=== PATIENT | female | born 1945 | race Caucasian/White ===

== ENCOUNTER 2017-04-16 06:46 | Day surgery (SDC) | payer MEDICARE ==
[~2017-04-16 06:46] MED LIST: ASPIRIN EC81 M1 PO; BENADRYL50 MG PO; BIOTIN5 MG PO; BISOPROLOL-HCT1 EAC1 PO; COLACE100 MG PO; COZAAR100 MG PO; DIOVAN160 MG PO; ELIQUIS2.5 MG PO; FLUTICASONE PRO16 GM NS; GLUCOPHAGE1000 MG PO; GLUCOSAMINE MSM PO; LIPITOR10 MG PO; MS CONTIN15 MG PO; NAPROSYN500 MG PO; OYST-CAL-5001 TAB PO; PERCOCET 10/3251 TA1 PO; SENOKOT-S TABLE1 TAB PO; SUDAFED 30 MG T30 MG PO; TYLENOL W/CODEI1 TAB PO; [UNRECOGNIZED DRUG - OTHER]
[2017-04-16 07:29] LABS: HEMATOCRIT 44.9 % (36.0-48.0); HEMOGLOBIN 14.8 g/dL (12-16); MCH 30.8 pg (26.0-34.0); MCV 93.3 fL (80.0-100.0); MEAN PLATELET VOLUME 11.2 fL (7.4-10.4); RBC 4.81 10x6/uL (4.00-5.40); RDW 13.2 % (11.5-14.5); WBC 9.3 10x3/uL (4.8-10.8)
[2017-04-16 08:04] VITALS: BMI 33.5
--- NOTE | 2017-04-16 10:15 | NUR ---
PT POSITIONED WITH PILLOW BETWEEN ARMS, FOAM BETWEEN LEGS. DENTURES REMOVED AND PLACED IN A LABELED CUP. TRANSPORTED WITH PT TO PACU. NURSES NOTIFIED PER VIKAS LANDRY PAD X 2 PLACED ON LEFT THIGH AND ABDOMEN. L/N [id number],EXP 03-01-19 X2.
--- NOTE | 2017-04-16 12:23 | NUR ---
1155-RECD TO ROOM FROM PACU. ALERT. IV PATENT. RESP WITH EASE. CXR DONE. 1200-FULL LIQUID TRAY SERVED.
--- NOTE | 2017-04-16 13:22 | NUR ---
1315 DISCHARGE INSTRUCTIONS COMPLETE. PT HAS NO QUESTIONS OR CONCERNS AT THIS TIME. PRESCRIPTION FOR CIPRO AND FLAGYL GIVEN. PT ESCORTED OUT BY VOLUNTEER.
--- NOTE | 2017-04-18 10:04 | HP ---
PATIENT: SANDRA SCOTT MEDICAL RECORD: [id number] ACCOUNT: [id number] LOCATION:[facility] : 45 ADMISSION DATE: 04/16/17 HISTORY AND PHYSICAL EXAMINATION There is a history and physical on the chart. There been no change in the history and physical examination since I saw the patient in my office. She has multiple colon polyps, many of which had been tattooed. The risks, possible complications, and alternatives to the procedure were explained to the patient. She elects to proceed. The discussion specifically included, but was not limited to, bleeding requiring emergency reoperation, infection, intestinal injury as well as possible need for further procedures or an open procedure. We also discussed the possibility of post-polypectomy bleeding as well as post-polypectomy syndrome. TRANSINT:[id number] Voice Confirmation ID: [id number] DOCUMENT ID: [id number] CC: Claudia Dominguez APN [facility]. CALEB FLOOD MD at 1004 CC: CLAUDIA DOMINGUEZ APN and MICHELLE GARCIA DO [id number] DICTATION DATE: 04/16/17 1152 DIRECTOR AIRPORT: 04/16/17 1222 [facility] [place] 04/16/17 [id number] [place] [address]
--- NOTE | 2017-04-18 10:04 | OP ---
PATIENT NAME: SANDRA SCOTT MEDICAL RECORD: [id number] :45 LOCATION:D[facility] ADMISSION DATE: SURGEON: CALEB FLOOD MD DATE OF OPERATION: 04/16/2017 PREOPERATIVE DIAGNOSIS: History of multiple colon polyps, many of which have been tattooed. POSTOPERATIVE DIAGNOSIS: History of multiple colon polyps, many of which have been tattooed with total of 8 polyps removed. PROCEDURES: 1. Total colonoscopy to cecum. 2. Six polypectomies utilizing the argon plasma accounts receivable manager. 3. Hot biopsy forceps polypectomies times 2. 4. Placement of 3 endoscopic clips for hemostasis. SURGEON: Caleb Flood MD PERIOPERATIVE NURSE: None. BLOOD LOSS: Minimal. ANESTHESIA: General. COMPLICATIONS: None. The risks, possible complications, and alternatives to procedure were explained to the patient. She elects to proceed. OPERATIVE COURSE: The patient was conveyed to the operating room electively on 04/16/17. General anesthesia was induced by anesthesia staff. The patient was placed in the Hand position. A digital rectal examination was performed. A colonoscope was inserted through the anus. It was easily advanced to the cecum. Upon withdrawal, I irrigated and aspirated extensively. The pullback was greater than 30-minute pullback. I dragged the folds. The prep was adequate. Multiple tattoos were noted. Multiple polyps were noted. The polyps ranged in size from 1.2 cm to 3.8 cm. I biopsied the polyps and utilized the argon plasma accounts receivable manager on 6 of the polypoid bases utilizing the right colon setting in the force mode. Two other polyps which were a 1.2 cm polyp and a 1.4 cm polyp were removed in their entireties utilizing the hot biopsy forceps polypectomy technique. There was one ascending colon polyp that bled after being removed. This necessitated the placement of 3 endoscopic clips in a row. This resulted in complete hemostasis. A retroflexed view was obtained in the rectum. The endoscope was then unretroflexed and removed under direct vision. I will see the patient in my office in 2-3 weeks. I will plan for her next colonoscopy with argon plasma accounts receivable manager to take place in 1 year. TRANSINT:[id number] Voice Confirmation ID: [id number] DOCUMENT ID: [id number] OPERATIVE REPORT [id number] SANDRA SCOTT CC: Claudia Dominguez APN [facility]. CALEB FLOOD MD at 1004 CC: CLAUDIA DOMINGUEZ APN and MICHELLE GARCIA DO [id number] DICTATION DATE: 04/16/17 1156 DESIGN ENGINEERING INTERN: 04/16/17 1304 [facility] [place] 04/16/17 [facility] [address] [id number]
== END 2017-04-16 13:15 | disposition home or self-care (01) ==
LOC: D.OPS 06:46 → D.PAN 09:15 → D.OPS 10:30 → D.PAN 10:30 → D.OPS 13:15
PROVIDERS: Anesthesiology
DX: K63.5 Polyp of colon (principal); Z86.010 Personal history of colon polyps; Z01.812 Encounter for preprocedural laboratory examination

== ENCOUNTER → 2017-11-18 11:06 | Outpatient (CLI) | payer MEDICARE | END | disposition home or self-care (01) | LOC: D.MRI 11:06 | DX: M25.512 Pain in left shoulder (principal) ==

== ENCOUNTER → 2017-12-02 18:25 | Outpatient (CLI) | payer MEDICARE | END | disposition home or self-care (01) | LOC: D.MAMMO 09:00 | DX: Z12.31 Encounter for screening mammogram for malignant neoplasm of breast (principal) ==

== ENCOUNTER 2018-07-21 08:05 | Outpatient (CLI) | payer MEDICARE ==
[~2018-07-21] VITALS: Ht 175.3 cm; Wt 97.7 kg
[2018-07-21 08:38] LABS: HEMATOCRIT 42.1 % (36.0-48.0); HEMOGLOBIN 13.9 g/dL (12-16); MCH 30.3 pg (26.0-34.0); MCV 91.7 fL (80.0-100.0); MEAN PLATELET VOLUME 10.6 fL (7.4-10.4); RBC 4.59 10x6/uL (4.00-5.40); RDW 13.4 % (11.5-14.5); WBC 8.7 10x3/uL (4.8-10.8)
[2018-07-21 09:03] VITALS: BP 142/81; Ht 175.3 cm; Wt 97.7 kg
[2018-07-21] MEDS ORDERED: VICTOZA0.6 MG/0.1 SQ (09:13)
[2018-07-21] MEDS ORDERED: VOLTAREN100 GM TOPICAL (09:13)
--- NOTE | 2018-07-21 12:04 | NUR ---
1200-PT. AND SPOUSE INFORMED OF ONE TO ONE AND A HALF HOUR DELAY. PT. REQUESTED IV TO BE REMOVED AND TO LEAVE. INSTRUCTED PATIENT TO CALL OFFICE TO RESCHEDULE.
== END 2018-07-21 08:06 | disposition home or self-care (01) ==
LOC: D.OPS 08:05 → EDSTATUS 11:00 → D.OPS 11:00
PROVIDERS: Anesthesiology; ATTEND Surgery
DX: Z86.010 Personal history of colon polyps (principal); Z53.29 Procedure and treatment not carried out because of patient's decision for other reasons

== ENCOUNTER 2018-09-01 06:18 | Day surgery (SDC) | payer MEDICARE ==
[~2018-09-01] VITALS: Ht 175.3 cm; Wt 93.2 kg
[~2018-09-01 06:18] MED LIST changes: -GLUCOPHAGE1000 MG PO; +GLUCOPHAGE500 MG PO; +VICTOZA0.6 MG/0.1 SQ; +VOLTAREN100 GM TOPICAL
[2018-09-01 06:37] LABS: HEMATOCRIT 41.7 % (36.0-48.0); HEMOGLOBIN 13.7 g/dL (12-16); MCH 30.4 pg (26.0-34.0); MCHC 32.9 g/dL (31.0-37.0); MCV 92.7 fL (80.0-100.0); MEAN PLATELET VOLUME 10.7 fL (7.4-10.4); RBC 4.5 10x6/uL (4.00-5.40); RDW 13.5 % (11.5-14.5); WBC 7.4 10x3/uL (4.8-10.8)
[2018-09-01 06:59] LABS: ANION GAP 11.6 mmol/L (8-16); CALCIUM 9.6 mg/dL (8.5-10.1); CARBON DIOXIDE 30.5 mmol/L (21.0-32.0); CREATININE - SERUM 0.9 mg/dL (0.6-1.3); POTASSIUM - SERUM 4.1 mmol/L (3.5-5.1)
[2018-09-01 07:33] VITALS: BP 140/68; Ht 175.3 cm; Wt 93.2 kg
--- NOTE | 2018-09-01 11:43 | NUR ---
IV REMOVED AND INSTRUCTIONS GIVEN TO PT AND FAMILY
--- NOTE | 2018-09-01 17:25 | HP ---
PATIENT: SANDRA SCOTT MEDICAL RECORD: [id number] ACCOUNT: [id number] LOCATION:[facility] : 45 ADMISSION DATE: 09/01/18 PCP: RAHEEL STEVENS MD HISTORY AND PHYSICAL EXAMINATION HISTORY OF PRESENT ILLNESS: The patient has had a history of multiple colon polyps. Several of these were tattooed. I had to utilize the argon plasma medical records coordinator when I removed these polyps back in April of 2017. She is here for surveillance colonoscopy. HOME MEDICATIONS: Please see the nursing list. ALLERGIES: LISINOPRIL WELL SULFA. SOCIAL HISTORY: Ex-smoker. PAST MEDICAL AND SURGICAL HISTORY: Noninsulin-dependent diabetes mellitus, gastroesophageal reflux, hypertension, history of colon polyps. PHYSICAL EXAMINATION: GENERAL: The patient does not appear acutely ill. She does appear chronically ill. VITAL SIGNS: Reviewed. EARS: External ears appear normal. EYES: Extraocular movements are intact. NECK: Trachea is midline. CHEST: No intercostal retractions. PULMONARY: Nonlabored. IMPRESSION: History of multiple colon polyps, some of which have been tattooed. PLAN: Colonoscopy with polypectomies. TRANSINT:[id number] Voice Confirmation ID: [id number] DOCUMENT ID: [id number] cc: Claudia Dominguez APN [phone] CALEB FLOOD MD at 2977 CC: CLAUDIA DOMINGUEZ APN and RAHEEL STEVENS MD [id number] DICTATION DATE: 09/01/18 1017 PACK OUT OPERATOR: 09/01/18 1051 [facility] 09/01/18 [facility] [address] [place] [address]
--- NOTE | 2018-09-01 17:25 | OP ---
PATIENT NAME: SANDRA SCOTT MEDICAL RECORD: [id number] :45 LOCATION:D.[facility] ADMISSION DATE: SURGEON: CALEB FLOOD MD DATE OF OPERATION: 09/01/2018 CHIEF COMPLAINT: History of multiple colon polyps, many of which were tattooed. POSTOPERATIVE DIAGNOSIS: History of multiple colon polyps, many of which were tattooed, and inadequate prep. PROCEDURES: 1. Total colonoscopy to cecum. 2. Hot biopsy forceps polypectomy times 1. The polyp was a 7-mm sessile polyp. 3. Biopsy of the hepatic flexure scar near a tattoo. SURGEON: Caleb Flood MD BLOOD BANK COORDINATOR: None. BLOOD LOSS: Minimal. ANESTHESIA: IV sedation. COMPLICATIONS: None. The risks were explained to the patient. A consent form was signed. ENDOSCOPIC COURSE: The patient was conveyed to the endoscopy suite electively on 09/01/2018. IV sedation was induced by the anesthesia staff. The patient was placed in the Hand position. A digital rectal examination was performed. A colonoscope was inserted through the anus. It was easily advanced to the cecum. Upon withdrawal, I irrigated and aspirated extensively. The prep was inadequate. I utilized normal imaging as well as narrow band imaging. Biopsies of a hepatic flexure scar were performed. I continued to withdraw the endoscope. I dragged the folds. I noted a small polyp at around 1 meter. This was removed utilizing the hot biopsy forceps polypectomy technique. I then withdrew into the rectum. I then withdrew the scope. I will see the patient in my office in 2-3 weeks. It is very likely I will return her endoscopic care back over to her application lead for surveillance colonoscopies in the future. TRANSINT:[id number] Voice Confirmation ID: [id number] DOCUMENT ID: [id number] CALEB FLOOD MD at 1728 CC: GRISELDA CAMILO APN and RAHEEL STEVENS MD [id number] DICTATION DATE: 09/01/18 1053 BABBITTER: 09/01/18 1109 [facility] 09/01/18 [place] [address]
== END 2018-09-01 11:48 | disposition home or self-care (01) ==
LOC: D.OPS 06:18
PROVIDERS: Anesthesiology; ATTEND Surgery
DX: K63.5 Polyp of colon (principal); Z86.010 Personal history of colon polyps; E11.9 Type 2 diabetes mellitus without complications; K21.9 Gastro-esophageal reflux disease without esophagitis; I10 Essential (primary) hypertension; Z87.891 Personal history of nicotine dependence; Z88.2 Allergy status to sulfonamides; Z88.8 Allergy status to other drugs, medicaments and biological substances; Z01.812 Encounter for preprocedural laboratory examination

== ENCOUNTER → 2019-05-11 10:00 | Outpatient (CLI) | payer MEDICARE ==
[2018-09-01 07:33] VITALS: BMI 30.3
== END | disposition home or self-care (01) ==
LOC: D.MAMMO 10:00
PROVIDERS: ATTEND Family Medicine
DX: Z12.31 Encounter for screening mammogram for malignant neoplasm of breast (principal)